=== PATIENT | female | born 2000 | race Caucasian/White ===

== ENCOUNTER 2023-03-30 06:10 | Day surgery (SDC) | payer OTHER ==
[2023-03-29 12:25] VITALS: BMI 40.4
[2023-03-30 07:06] LABS: BHCG - Serum Negative (NEGATIVE); Pregs Control Background? CLEAR/WHITE (CLR/WHITE); Pregs Control Bar Appear? YES (CONTROL BAR)
[2023-03-30 07:55] LABS: Hematocrit 39.1 % (36.0-47.0)
[2023-03-30] MEDS ORDERED: Midazolam HCl 2 mg/2 ml Vial ONE ×2 (08:37→08:40)
[2023-03-30] MEDS ORDERED: fentaNYL 50 mcg/mL 1 mL Vial ONE ×4 (08:39→10:43)
[2023-03-30] MEDS ORDERED: fentaNYL PF 100 MCG/2 ML SYRINGE ONE (08:40)
[2023-03-30] MEDS ORDERED: Dexamethasone 20 MG/5 ML VIAL ONE (08:47)
[2023-03-30] MEDS ORDERED: PROPOFOL 200 MG/20 ML VIAL ONE (08:47)
[2023-03-30] MEDS ORDERED: Lidocaine 1% PF 5 ML VIAL ONE (08:47)
[2023-03-30] MEDS ORDERED: Ondansetron PF 4 MG/2 ML Vial ONE (08:47)
[2023-03-30] MEDS ORDERED: Albuterol HFA (OR) 200 PUFF INH ONE (08:47)
[2023-03-30] MEDS ORDERED: Ferric Subsulfate (ASTRINGYN) 8 GM VIAL ONE (09:17)
[2023-03-30] MEDS ORDERED: Ipratropium/Albuterol 3 ML NEB ONE (09:32)
[2023-03-30] MEDS ORDERED: Morphine 2 MG/ML VIAL ONE (11:13)
[2023-03-30] MEDS ORDERED: Promethazine HCl 25 MG/ML VIAL ONE (11:14)
[2023-03-30] MEDS ORDERED: Hydrocodone-Acetamin 15 ML UDCUP ONE (12:40)
== END 2023-03-30 13:00 | disposition home or self-care (01) ==
LOC: SDC 06:10
PROVIDERS: ATTEND Specialist
PROC: 0CTPXZZ Resection of Tonsils, External Approach (ICD-10-PCS; principal; 2023-03-30)
DX: J35.1 Hypertrophy of tonsils (principal); I10 Essential (primary) hypertension; J45.909 Unspecified asthma, uncomplicated; F32.A Depression, unspecified; F41.9 Anxiety disorder, unspecified; J32.9 Chronic sinusitis, unspecified; J30.89 Other allergic rhinitis; Z79.899 Other long term (current) drug therapy
CPT/HCPCS: 84703; 85014; 88304; J1100; J2250; J2272; J2405; J2550; J2704; J3010; J7620